=== PATIENT | female | born 1940 | race Caucasian/White ===

== ENCOUNTER 2018-03-16 23:51 | Emergency (ER) | payer MEDICARE, BC ==
--- NOTE | 2018-03-17 00:35 | ED ---
Upper Extremity Pain - HPI Summary HPI Summary: 77F presents with right middle finger injury today. States she caught in a door. She injured her distal phalanx of her right middle finger. She denies any previous fracture to the area. She states the area continued to ooze. She believes her tetanus is up-to-date. No other injury. No numbness or tingling. States feels better when it is elevated with ice over her head. She is not diabetic. - History of Current Complaint Chief Complaint: EDLacSutureRecheck Stated Complaint: RT MIDDLE FINGER INJURY Time Seen by Provider: 03/17/18 00:03 - Allergies/Home Medications Allergies/Adverse Reactions: Allergies Allergy/AdvReac Type Severity Reaction Status Date / Time Penicillins Allergy Hives Verified 03/16/18 23:55 PMH/Surg Hx/FS Hx/Imm Hx Endocrine/Hematology History: Denies: Hx Anticoagulant Therapy Cardiovascular History: Reports: Hx Hypertension - Immunization History Date of Tetanus Vaccine: UNSURE Date of Influenza Vaccine: UNSURE Infectious Disease History: No Infectious Disease History: Denies: Traveled Outside the [place] in Last 30 Days - Family History Known Family History: Positive: Hypertension - Social History Alcohol Use: Rare Substance Use Type: Reports: None Smoking Status (MU): Never Smoked Tobacco Review of Systems Negative: Fever Negative: Chest Pain Negative: Shortness Of Breath Positive: Myalgia - right middle finger All Other Systems Reviewed And Are Negative: Yes Physical Exam Triage Information Reviewed: Yes Vital Signs On Initial Exam: Initial Vitals Temp Pulse Resp BP Pulse Ox 98.1 F 48 18 158/72 100 03/16/18 23:55 03/16/18 23:55 03/16/18 23:55 03/16/18 23:55 03/16/18 23:55 Vital Signs Reviewed: Yes Appearance: Positive: Well-Appearing Skin: Positive: Warm, Dry Head/Face: Positive: Normal Head/Face Inspection Eyes: Positive: Normal, Conjunctiva Clear ENT: Positive: Pharynx normal Respiratory/Lung Sounds: Positive: Clear to Auscultation, Breath Sounds Present Cardiovascular: Positive: Normal, RRR Musculoskeletal: Positive: Strength/ROM Intact - right middle finger, Edema Right - with ecchymosis to right middle finger, Other - subungual hematoma of right middle finger, superficial abrasion near nail with mild active bleeding, good pulses, sensation grossly intact Neurological: Positive: Normal Psychiatric: Positive: Normal Procedures - Nail Trepanation right middle Nail Trepanation Location: right middle Method of Drainage: nail cauterized Sterile Dressing Applied: No Finger Splint: Yes - gagan tape Diagnostics - Vital Signs Vital Signs Temp Pulse Resp BP Pulse Ox 03/16/18 23:55 98.1 F 48 18 158/72 100 - Laboratory Lab Statement: Any lab studies that have been ordered have been reviewed, and results considered in the medical decision making process. - Radiology finger Xray Interpretation: Positive (See Comments) - tuft fx Radiology Interpretation Completed By: Radiologist Course/Dx - Course Course Of Treatment: 77F presents with right middle finger injury today. States she caught in a door. She injured her distal phalanx of her right middle finger. She denies any previous fracture to the area. She states the area continued to ooze. She believes her tetanus is up-to-date. No other injury. No numbness or tingling. States feels better when it is elevated with ice over her head. She is not diabetic. On exam has edema noted to right middle distal phalanx. Neurovascular intact. Has sublingual hematoma. X-ray shows a tuft fracture. performed a nail trepidation. gagan taped. Told to follow-up with primary. Told to practice jorge. Patient understands and agrees plan. - Diagnoses Differential Diagnosis/HQI/PQRI: Positive: Fracture (Closed), Strain, Sprain Provider Diagnoses: Subungual hematoma, Closed fracture of tuft of distal phalanx of finger Discharge - Sign-Out/Discharge Documenting (check all that apply): Discharge/Admit/Transfer - Discharge Plan Condition: Good Disposition: HOME Patient Education Materials: Finger Fracture (ED) Referrals: Home Paz MD [Primary Care Provider] - Jannet Coats MD [Medical Doctor] - Additional Instructions: Keep finger gagan taped Follow up with primary or can follow up with ortho Take tyenlol or ibuprofen for pain every 6 hours ice, elevate Return to ED if develop any new or worsening symptoms - Billing Disposition and Condition Condition: GOOD Disposition: Home
[2018-03-17] MEDS ORDERED: Ibuprofen TAB* 600 MG PO ONE (01:36)
[2018-03-17 03:23] VITALS: BP 158/91
--- NOTE | 2018-03-17 07:31 | RAD ---
INDICATION: Right third digit injury COMPARISON: None TECHNIQUE: AP, lateral, and oblique views were obtained. FINDINGS: There is a a crush type injury with a fracture the tuft. Fracture fragments are essentially nondisplaced. There is associated soft tissue swelling. No additional findings. IMPRESSION: TUFT FRACTURE.
== END 2018-03-17 02:20 | disposition home or self-care (01) ==
LOC: ED 23:51
DX: S62.632A Displaced fracture of distal phalanx of right middle finger, initial encounter for closed fracture (principal); S60.221A Contusion of right hand, initial encounter; W23.0XXA Caught, crushed, jammed, or pinched between moving objects, initial encounter; Y92.9 Unspecified place or not applicable; I10 Essential (primary) hypertension
CPT/HCPCS: 73140; 99282; A9270-GY